=== PATIENT | male | born 1970 | race Hispanic/Latino ===

== ENCOUNTER → 2021-11-17 | Outpatient (CLI) | payer OTHER ==
[~2021-11-17] VITALS: Ht 180.3 cm; Wt 124.1 kg
[2021-11-17 15:10] VITALS: BP 167/75
[2021-11-17 16:44] LABS: BASOPHILS % (AUTO) 0.5 % (0.0-5.0); EOSINOPHILS % (AUTO) 1.9 % (0.0-8.0); HEMATOCRIT 42.2 % (42-54); LYMPHOCYTES % (AUTO) 28.2 % (21.0-51.0); MEAN CORPUSCULAR HEMOGLOBIN 28.2 pg (27.0-33.0); MEAN CORPUSCULAR HGB CONC 32.9 g/dL (32.0-36.0); MEAN CORPUSCULAR VOLUME 85.6 fL (79-99); MONOCYTES % (AUTO) 10.2 % (3.0-13.0); NEUTROPHILS % (AUTO) 59.1 % (40.0-77.0); PLATELET COUNT (AUTO) 209 K/uL (130-400); RED BLOOD CELL COUNT(AUTO) 4.93 MIL/uL (4.50-6.20); RED CELL DISTRIBUTION WIDTH 13.3 % (11.0-15.5); WHITE BLOOD COUNT (AUTO) 9.2 K/uL (4.8-10.8)
[2021-11-17 16:50] LABS: APPEARANCE,URINE CLEAR (CLEAR); BILIRUBIN,URINE NEGATIVE (NEGATIVE); COLOR,URINE YELLOW (YELLOW); GLUCOSE, URINE (UA) NEGATIVE (NEGATIVE); KETONES,URINE NEGATIVE (NEGATIVE); LEUKOCYTE ESTERASE ,URINE NEGATIVE (NEGATIVE); NITRATE,URINE NEGATIVE (NEGATIVE); OCCULT BLOOD,URINE NEGATIVE (NEGATIVE); PROTEIN,URINE NEGATIVE (NEGATIVE); UROBILINOGEN,URINE 0.2 mg/dL (0.2-1.0)
[2021-11-17 16:54] LABS: CREATININE 1.1 mg/dL (0.5-1.5)
[2021-11-17 16:58] LABS: INR 1.01 (0.85-1.15)
[2021-11-17 16:59] LABS: PARTIAL THROMBOPLASTIN TIME 27.2 SEC (26.3-35.5)
== END | disposition home or self-care (01) ==
LOC: DAH 10:00 → EDSTATUS 13:00
PROVIDERS: ATTEND Internal Medicine Interventional Cardiology
DX: Z01.810 Encounter for preprocedural cardiovascular examination (principal); R94.39 Abnormal result of other cardiovascular function study; Z79.01 Long term (current) use of anticoagulants
CPT/HCPCS: 36415; 80048; 81003; 85025; 85610; 85730; 93005

== ENCOUNTER 2021-12-14 05:38 | Day surgery (SDC) | payer OTHER ==
[2021-12-12 10:15] VITALS: BP 162/93
[2021-12-12 10:22] LABS: BASOPHILS % (AUTO) 0.6 % (0.0-5.0); EOSINOPHILS % (AUTO) 2.9 % (0.0-8.0); HEMATOCRIT 41.4 % (42-54); LYMPHOCYTES % (AUTO) 30.1 % (21.0-51.0); MEAN CORPUSCULAR HEMOGLOBIN 28.5 pg (27.0-33.0); MEAN CORPUSCULAR HGB CONC 33.3 g/dL (32.0-36.0); MEAN CORPUSCULAR VOLUME 85.5 fL (79-99); MONOCYTES % (AUTO) 8.3 % (3.0-13.0); NEUTROPHILS % (AUTO) 57.8 % (40.0-77.0); PLATELET COUNT (AUTO) 193 K/uL (130-400); RED BLOOD CELL COUNT(AUTO) 4.84 MIL/uL (4.50-6.20); RED CELL DISTRIBUTION WIDTH 13.3 % (11.0-15.5); WHITE BLOOD COUNT (AUTO) 6.6 K/uL (4.8-10.8)
[2021-12-12 10:36] LABS: CREATININE 0.9 mg/dL (0.5-1.5); POTASSIUM 4.3 mmol/L (3.5-5.1)
[2021-12-12 10:39] LABS: INR 0.96 (0.85-1.15); PROTHROMBIN TIME 10.5 SEC (9.6-11.6)
[2021-12-12 10:40] LABS: PARTIAL THROMBOPLASTIN TIME 26.2 SEC (26.3-35.5)
[2021-12-12 11:02] LABS: APPEARANCE,URINE CLEAR (CLEAR); BILIRUBIN,URINE NEGATIVE (NEGATIVE); COLOR,URINE YELLOW (YELLOW); GLUCOSE, URINE (UA) NEGATIVE (NEGATIVE); KETONES,URINE NEGATIVE (NEGATIVE); LEUKOCYTE ESTERASE ,URINE NEGATIVE (NEGATIVE); NITRATE,URINE NEGATIVE (NEGATIVE); OCCULT BLOOD,URINE TRACE-INTACT (NEGATIVE); PH,URINE 6.5 (5.0-8.0); PROTEIN,URINE NEGATIVE (NEGATIVE); UROBILINOGEN,URINE 0.2 mg/dL (0.2-1.0)
[2021-12-12 11:08] LABS: BACTERIA,URINE Rare /HPF (None Seen); MUCUS,URINE Rare LPF (None Seen); RBC,URINE 0-1 /HPF (0-1); SQUAMOUS EPITHELIAL CELL,UR Rare /HPF (0-2); WBC,URINE 0-1 /HPF (0-1)
[2021-12-14] VITALS (9 sets, daily range): BP systolic 100–164; BP diastolic 64–87
[~2021-12-14] VITALS: Ht 180.3 cm; Wt 123.4 kg
[~2021-12-14 05:38] MED LIST: ATOR40TA71 PO; LISI5TAB21 PO; MELO-108 PO; TIMO.5OS OU; TOPI50TA24 PO; VENL150C4 PO; lidocaine patch TD; vitamin d PO
[2021-12-14] MEDS ORDERED: DiphenhydrAMINE HCL 50 MG/ML VIAL ONE (06:18)
[2021-12-14] MEDS ORDERED: 0.9%NACL 1000ML 1,000 ML IV ONE (06:19)
[2021-12-14] MEDS ORDERED: LIDOCAINE HCL 400MG/20ML VIAL ONE (07:18)
[2021-12-14] MEDS ORDERED: NITROGLYCERIN 50MG VIAL ONE (07:18)
[2021-12-14] MEDS ORDERED: IOHEXOL 350 MG/ML 100ML INFUS..BTL IV ONE (07:18)
[2021-12-14] MEDS ORDERED: IOHEXOL-350 50ML VIAL IV ONE ×2 (07:18→08:17)
[2021-12-14] MEDS ORDERED: HEPARIN 10,000 UNIT/10ML (1,000 UNIT/ML) VIAL ONE (07:23)
[2021-12-14] MEDS ORDERED: FENTANYL CITRATE PF 50 MCG/1 ML 2ML VIAL ONE (07:24)
[2021-12-14] MEDS ORDERED: MIDAZOLAM HCL 1 MG/ML 2ML VIAL ONE (07:24)
[2021-12-14] MEDS ORDERED: NICARDIPINE 25MG INJ IV ONE (07:24)
[2021-12-14] MEDS ORDERED: 0.9%NACL 1000ML 1,000 ML IV SCH (09:00)
[2021-12-14] MEDS ORDERED: ACETAMINOPHEN 500 MG TABLET ONE (12:08)
== END 2021-12-14 13:32 | disposition home or self-care (01) ==
LOC: DAH 05:38
PROVIDERS: ATTEND Internal Medicine Interventional Cardiology
DX: I25.119 Atherosclerotic heart disease of native coronary artery with unspecified angina pectoris (principal); I10 Essential (primary) hypertension; I34.0 Nonrheumatic mitral (valve) insufficiency; I42.9 Cardiomyopathy, unspecified; E78.00 Pure hypercholesterolemia, unspecified; Z79.01 Long term (current) use of anticoagulants; Z79.899 Other long term (current) drug therapy; Z98.890 Other specified postprocedural states; Z82.49 Family history of ischemic heart disease and other diseases of the circulatory system
CPT/HCPCS: 80048; 85025; 85610; 85730; 81001; 36415; 93005; 93458; 93306; 93356; C1887; C1769; C1894; Q9965; J1200; J3010; J3490 ×3; J7030; J1644 ×2; J2250; Q9967 ×3; A4215; A4222; A4221; A4663; A4216; A4606; A4223 ×3; 99156; 99157